=== PATIENT | female | born 1945 | race African-American/Black ===

== ENCOUNTER → 2016-08-04 | Day surgery (SDC) | payer MEDICARE, BC ==
--- NOTE | 2016-08-03 11:08 | Pre-op HX & Phy Repo 2 SIG ---
DATE OF ADMISSION: 08/04/2016 PREOPERATIVE DIAGNOSIS: Vitreomacular traction syndrome, left eye with impending macular hole. 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 She showed traction in the right eye in 2010, which progressed to a full thickness macular hole, requiring surgery. This was successfully done in 2010 with recovery of vision. The left eye has been fine until the progressive vitreal macular traction has developed with a sizable cyst in the macula. Because of this, she is admitted for surgery to relieve vitreal macular traction, and possible progression of macular hole. PAST MEDICAL HISTORY: Her past medical history is remarkable for diabetes. This is controlled with Januvia. ALLERGIES: She is allergic to penicillin. PHYSICAL EXAMINATION: HEENT: Best vision at the time of the visit was 20/30 -1 in the right eye and 20/25 minus with central distortion on the left. Her anterior segment was quiet in either eye with posterior chamber lens and an open capsule noted on the right. The left showed an early nuclear cataract. Fundus examination showed mild pigmentary changes centrally on the right. There was a closed macular hole. The left showed significant vitreomacular traction with a central cyst. ASSESSMENT: Vitreomacular traction syndrome, left eye. PLAN: The plan is to perform a pars plana vitrectomy with relief of the posterior traction. ICG may or may not be used. The risks and benefits of surgery was gone over the patient with potential infection, hemorrhage, retinal tears or detachment, cataract progression, remote possibility of loss of the eye. The risk of anesthesia was discussed. The patient understands and consents to the surgery, which will be performed tomorrow morning. Jb Cuevas M.D. DR: Melinda JOB#: [id number] CC: ROCIO
[2016-08-04] VITALS (9 sets, daily range): BP systolic 119–159; BP diastolic 51–76
[~2016-08-04] VITALS: Ht 147.3 cm; Wt 55.3 kg
[~2016-08-04] MED LIST: Alfentanil 2ml Inj ONE; Atropine Inj 1mg/10ml Syr IV PRN; BSS 15ml BTL ONE; BSS 500ml btl ONE; CLARITIN-D 121 EAC1 ORAL; Cyclopentolate 1% Opth Sol ONE; Dexamethasone 4mg/ml vial ONE; DiphenhydrAMINE 50mg/ml Inj IVP PRN; FLONASE ALLERG9.9 ML NS; Flurbiprofen 0.03% Opth Sol 2.5ml ONE; Gatifloxacin Opth Solution 0.5% ONE; Hydromorphone 0.5mg/0.5ml inj IVP PRN; Indocyanine Green 25mg Inj INJ ONE; JANUVIA25 MG ORAL; Kenalog-10 5ml Inj ONE; Kenalog-40 1ml Vial ONE; Ketorolac 30mg Inj IV PRN; Ketorolac 60mg Inj IV PRN; LORazepam Inj 2mg/ml 1ml IV PRN; LR 1000ml 1,000 ML IVLG SCH; LR 1000ml ONE; Labetalol 5mg/ml 20ml vial IV PRN; Lidocaine 1% MPF 10mg/ml 5ml ONE; Lidocaine 2% MPF 5ml Vial INJ ONE; Maxitrol Opth Oint 3.5gm ONE; Meperidine 25mg/ml Inj IV PRN; Metoclopramide 10mg/2ml Inj IVP PRN; Midazolam 2mg/2ml Inj IVP PRN; Midazolam 2mg/2ml Inj ONE; NS Irrig 1000ml ONE; Norco 5mg/325mg tab ORAL PRN; Norco 7.5mg/325mg tab ORAL PRN; Oxycodone/Acetaminophen 5-325 ORAL PRN; Phenylephrine 2.5% Op Soln ONE; Povidone-Iodine 5% opth solution ONE; Pred Forte 1% Opth Susp 1ml LEFT EYE ONE; Pred Forte 1% Opth Susp 1ml ONE; Propofol 10mg/ml 20ml IV ONE; Sterile Water Irrig 1000ml IRRIG ONE; Tetracaine 0.5% Opth Soln ONE; fentaNYL 100 mcg/2 mL IV PRN
[2016-08-04 06:08] LABS: BASOPHILS % (AUTO) 0.8 % (0.0-2.0); EOSINOPHILS % (AUTO) 1.4 % (0.0-3.0); LYMPHOCYTES % (AUTO) 33.9 % (20.0-45.0); MEAN CORPUSCULAR HEMOGLOBIN 26.4 PG (27.0-31.0); MEAN CORPUSCULAR HGB CONC 32.2 G/DL (32.0-36.0); MEAN CORPUSCULAR VOLUME 82 FL (80-99); MEAN PLATELET VOLUME 6.3 FL (6.5-10.1); MONOCYTES % (AUTO) 8.9 % (1.0-10.0); PLATELET COUNT 236 K/UL (150-450); RED BLOOD COUNT 4.97 M/UL (4.20-5.40); RED CELL DISTRIBUTION WIDTH 12.2 % (11.6-14.8); WHITE BLOOD COUNT 6.3 K/UL (4.8-10.8)
--- NOTE | 2016-08-04 06:19 | Pre-Procedure Note/Attestation ---
Pre-Procedure Note/Attestation Complete Prior to Procedure Planned Procedure: left Procedure Narrative: PPV, ICG assisted membrane peel. Kenalog injection, possible endolaser, possible gas-fluid exchange L eye Indications for Procedure Pre-Operative Diagnosis: Vitreo-macular traction syndrome with impending macular hole L eye Attestation I attest that I discussed the nature of the procedure; its benefits; risks and complications; and alternatives (and the risks and benefits of such alternatives ), prior to the procedure, with the patient (or the patient's legal telecommunications sales representative). I attest that, if there was a reasonable possibility of needing a blood transfusion, the patient (or the patient's legal telecommunications sales representative) was given the [place] [employer] standardized written summary, pursuant to the [place] Blood Safety Act ([place] Health and Safety Code # 1645, as amended). I attest that I re-evaluated the patient just prior to the surgery and that there has been no change in the patient's H&P, except as documented below: SOBIA DOMINGUEZ Aug 04, 2016 06:19
[2016-08-04] MEDS: Gatifloxacin Opth Solution 0.5% LEFT EYE SCH ×3 (06:25→06:44)
[2016-08-04] MEDS: Flurbiprofen 0.03% Opth Sol 2.5ml LEFT EYE SCH ×3 (06:25→06:44)
[2016-08-04] MEDS: Phenylephrine 2.5% Op Soln LEFT EYE SCH ×3 (06:25→06:44)
[2016-08-04] MEDS: Cyclopentolate 1% Opth Sol LEFT EYE SCH ×3 (06:25→06:44)
[2016-08-04 06:33] LABS: ANION GAP 15 (5-15); CALCIUM 9.6 mg/dL (8.6-10.2); CARBON DIOXIDE 22 mEQ/L (20-30); CHLORIDE 104 mEQ/L (98-107); CREATININE 0.6 mg/dL (0.5-0.9); HEMOLYSIS 64; POTASSIUM 4.3 mEQ/L (3.4-4.9); SODIUM 141 mEQ/L (135-145)
--- NOTE | 2016-08-04 07:46 | Anethesia Preoperative Eval ---
Anesthesia Pre-op PMH/ROS General Date of Evaluation: Aug 04, 2016 Time of Evaluation: 09:32 Anesthesiologist: Andrés ASA Score: ASA 3 Mallampati Score Class I : Soft palate, uvula, fauces, pillars visible Class II: Soft palate, uvula, fauces visible Class III: Soft palate, base of uvula visible Class IV: Only hard plate visible Mallampati Classification: Class II Surgeon: Faith Diagnosis: Macular Cyst Hole OS Surgical Procedure: Vitrectomy OS Anesthesia History: none Family History: no anesthesia problems Allergies: Coded Allergies: PENICILLINS (Verified Allergy, Unknown, 09/04/10) Medications: see eMAR Past Medical History Cardiovascular: Reports: HTN Pulmonary: Reports: asthma Endocrine: Reports: DM HEENT: Reports: cataract (L), cataract (R), other - Vitrectomy OD Musculoskeletal/Integumentary: Reports: OA Anesthesia Pre-op Phys. Exam Physician Exam Last Vital Signs Date Time Temp Pulse Resp B/P Pulse Ox O2 Delivery O2 Flow Rate FiO2 08/04/16 06:29 97.0 86 18 157/76 100 Room Air Constitutional: NAD Neurologic: CN 2-12 intact Cardiovascular: RRR Respiratory: CTA Gastrointestinal: S/NT/ND Airway Exam Mallampati Score: Class II MO: limited ROM: limited Teeth: intact Anesthesia Pre-op A/P Labs Hematology Test 08/04/16 05:35 White Blood Count 6.3 K/UL (4.8-10.8) Red Blood Count 4.97 M/UL (4.20-5.40) Hemoglobin 13.1 G/DL (12.0-16.0) Hematocrit 40.8 % (37.0-47.0) Mean Corpuscular Volume 82 FL (80-99) Mean Corpuscular Hemoglobin 26.4 PG (27.0-31.0) L Mean Corpuscular Hemoglobin Concent 32.2 G/DL (32.0-36.0) Red Cell Distribution Width 12.2 % (11.6-14.8) Platelet Count 236 K/UL (150-450) Mean Platelet Volume 6.3 FL (6.5-10.1) L Neutrophils (%) (Auto) 55.0 % (45.0-75.0) Lymphocytes (%) (Auto) 33.9 % (20.0-45.0) Monocytes (%) (Auto) 8.9 % (1.0-10.0) Eosinophils (%) (Auto) 1.4 % (0.0-3.0) Basophils (%) (Auto) 0.8 % (0.0-2.0) Chemistry Test 08/04/16 05:35 Sodium Level 141 mEQ/L (135-145) Potassium Level 4.3 mEQ/L (3.4-4.9) Chloride Level 104 mEQ/L (98-107) Carbon Dioxide Level 22 mEQ/L (20-30) Anion Gap 15 (5-15) Blood Urea Nitrogen 11 mg/dL (7-23) Creatinine 0.6 mg/dL (0.5-0.9) Estimat Glomerular Filtration Rate mL/min (>60) Glucose Level 214 mg/dL (74-106) H Calcium Level 9.6 mg/dL (8.6-10.2) Risk Assessment & Plan Assessment: ASA 3 Plan: GA Status Change Before Surgery: Brendon Nieto MD Aug 04, 2016 07:46
--- NOTE | 2016-08-04 07:48 | Immediate Post-Op Evaluation ---
Immediate Post-Op Evalulation Immediate Post-Op Evalulation Procedure: Vitrectomy OS Date of Evaluation: Aug 04, 2016 Time of Evaluation: 11:09 IV Fluids: 300 LR Blood Products: 0 Estimated Blood Loss: 2 Urinary Output: 0 Blood Pressure Systolic: 159 Blood Pressure Diastolic: 70 Pulse Rate: 84 Respiratory Rate: 16 O2 Sat by Pulse Oximetry: 98 Temperature (Fahrenheit): 98.8 Pain Score (1-10): 1 Nausea: No Vomiting: No Complications 0 Patient Status: awake, reacts, patent, none Hydration Status: adequate Brendon Bowen MD Aug 04, 2016 07:48
--- NOTE | 2016-08-04 07:48 | 48 Hour Post Anesthesia Eval ---
Post Anesthesia Evaluation Procedure: Vitrectomy OS Date of Evaluation: Aug 04, 2016 Time of Evaluation: 13:21 Blood Pressure Systolic: 162 0: 67 Pulse Rate: 78 Respiratory Rate: 18 Temperature (Fahrenheit): 98.6 O2 Sat by Pulse Oximetry: 98 Airway: patent Nausea: No Vomiting: No Pain Intensity: 1 Hydration Status: adequate Cardiopulmonary Status: Stable Mental Status/LOC: patient returned to baseline Follow-up Care/Observations: 0 Post-Anesthesia Complications: 0 Follow-up care needed: ready to discharge Brendon Bowen MD Aug 04, 2016 07:48
--- NOTE | 2016-08-04 09:36 | Brief Operative Note ---
Immediate Post Operative Note Operative Note Chief Complaint: Central visual distortion L eye Pre-op Diagnosis: Vitreo-macular traction syndrome with impending macular hole L eye Procedure: PPV, Membrane peel, Kenalog injection, air-fluid exchange L eye Post-op Diagnosis: same as pre-op Surgeon: shannan Anesthesiologist: Nelson Anesthesia: MAC Specimen: none Complications: none Condition: stable Estimated Blood Loss: none Drains: none Implant(s) used?: No SOBIA DOMINGUEZ Aug 04, 2016 09:36
--- NOTE | 2016-08-04 21:18 | Operative Note - Dictated ---
DATE OF SURGERY: 08/04/2016 PREOPERATIVE DIAGNOSIS: Vitreal macular traction syndrome, left eye with impending macular hole. POSTOPERATIVE DIAGNOSIS: Vitreal macular traction syndrome, left eye with impending macular hole. PROCEDURES: 1. Pars plana vitrectomy. 2. Peeling of posterior vitreous traction. 3. Kenalog injection. 4. Air fluid exchange, left eye. SURGEON: Jb Cuevas M.D. SODA DISPENSER: None. ANESTHESIA: Local sedation. ANESTHESIOLOGIST: Dr. Bowen. JUSTIFICATION FOR SURGERY: This 70-year-old lady with a history of a prior macular hole in the right eye developed progressive symptoms of vitreal macular traction in the left. BRIEF NOTE: The patient brought to the operative room, placed on table in supine position. After a time-out was performed and agreed upon by the staff, an initial monitoring secured by Dr. Bowen. Retrobulbar and Van Lint blocks were given in the standard way. When the blocks taken effect, she was then prepped and draped in the normal manner. A lid speculum inserted into the left eye. Using a 23-gauge trocar system, cannulas were placed in all except infranasal quadrant. Infusion secured inferotemporally. Vitrectomy was begun posterior to the lens taking care to avoid contact. A central core vitrectomy was done followed by dusting of the vitreous with diluted Kenalog solution. With the posterior hyaloid nonvisualized, the vitrectomy was carried further peripherally leaving a small vitreous skirt and posteriorly removing the partially elevated hyaloid. A wide angle viewing lens was inserted on the cornea and at high magnification, the posterior vitreous was engaged just temporal to the optic nerve and gently elevated without significant distortion of the posterior pole. The vitreous was then removed with the vitreous cutter. That did not be appear to be full-thickness hole present has had been documented on the preoperative OCT. At this juncture, scleral depression was done and no peripheral breaks, tears, detachments were seen. A 50% air-fluid exchange was then performed. With the eye being normotensive. The cannulas were removed and the wounds were noted to be self-sealing. Subconjunctival Decadron and gentamicin were injected inferiorly and Maxitrol and atropine ointments were instilled. The eye was patched and shielded. The patient was taken to recovery in excellent condition to be placed in a face-down position over night. There were no complications. Jb Cuevas M.D. DR: Bianca JOB#: [id number] CC: ROCIO
--- NOTE | 2016-08-05 15:11 | Cardiology Report ---
APPROVED REPORT EKG Measurement Heart [id number] Normal sinus rhythm Normal ECG
--- NOTE | 2016-08-05 15:28 | Pre-op HX & Phy Repo 2 SIG ---
DATE OF ADMISSION: 08/04/2016 REASON FOR EVALUATION: I was asked by Dr. Jb Campbell to see this 70-year-old female, who is going for elective surgery on the left eye. The patient has a macular cysts hole left eye. Please see Dr. Jb campbell's History And Physical. HISTORY OF PRESENT ILLNESS: The patient was evaluated chart was reviewed. PAST MEDICAL HISTORY: Remarkable for type 2 diabetes, hypertension, arthritis of the small joints and allergic rhinitis. No history of stroke or seizures. No history of heart attack or chest pain. Denies history of respiratory problem. No GI bleeding or ulcer disease. No heartburn. Denies history of renal failure or thyroid problem. No anemia or bleeding. PAST SURGICAL HISTORY: Left eye surgery and hysterectomy in 1986. MEDICATIONS: Current medications include Januvia, Claritin and vitamins. ALLERGIES: Penicillin and pollen. SOCIAL HISTORY: Denies tobacco use. No alcohol. No street drugs. FAMILY HISTORY: Mother of diabetes and father had a stroke. PHYSICAL EXAMINATION: GENERAL: Alert, well-developed and well-nourished female. VITAL SIGNS: Blood pressure 157/76, temperature 97 degrees, pulse 86, O2 saturation 100%. SKIN: Clear and dry. No diaphoresis or eruption. LYMPH NODES: Not enlarged. HEENT: Head normocephalic. Nose, clear. No discharge. Eyes, full description per Dr. Jb Campbell. Mouth, clear and moist. Dentures on the left. NECK: No jugular vein distention. Carotids artery +2. Trachea midline. No palpable mass. CHEST: No deformity or asymmetry. No mass. LUNGS: No rales or rhonchi. HEART: Sinus rhythm. No ectopy. No murmur. No S3 or S4. ABDOMEN: Soft and benign. No palpable mass. No rebound. Liver and spleen not enlarged. EXTREMITIES: No peripheral edema. No varicose veins. No calf tenderness. GENITOURINARY: No dysuria. CVA nontender. NEUROLOGIC: No tremor. No nystagmus. No asymmetry. LABORATORY AND DIAGNOSTIC DATA: ECG normal sinus rhythm, 84 per minute, normal ECG. Blood sugar 183 mg/dL. The patient did not eat or drink from last night. IMPRESSION: 1. Macular cyst hole left eye. 2. Diabetes mellitus type 2. 3. Hypertension, fairly controlled, non-treated. 4. Allergic rhinitis. PLAN: Pars plana vitrectomy, 24 , ICG, possible gas injection of left eye per Dr. Jb Campbell. CONCLUSION: The patient need to consider to take blood pressure medication. She is diabetic and needs to total control her blood sugar. The patient's electrocardiogram was normal and she did not eat or drink from last night. The patient's condition optimized for surgery. Thank you very much, Dr. Campbell, for privilege to participate in presurgical care of this interesting patient. Kristina Valadez M.D. DR: CAROLIN JOB#: [id number] CC:
== END | disposition home or self-care (01) ==
LOC: SUR 05:29
DX: H43.822 Vitreomacular adhesion, left eye (principal); E11.9 Type 2 diabetes mellitus without complications; Z79.84 Long term (current) use of oral hypoglycemic drugs; J45.909 Unspecified asthma, uncomplicated; I10 Essential (primary) hypertension; M19.90 Unspecified osteoarthritis, unspecified site; Z90.710 Acquired absence of both cervix and uterus; Z88.0 Allergy status to penicillin
CPT/HCPCS: 36415; 67042; 80048; 82962; 85025; 93005; J1100; J2250; J2704; J3490; J7120; 94003; 94150